=== PATIENT | male | born 1945 | race Caucasian/White ===

== ENCOUNTER → 2020-10-17 14:13 | Outpatient (CLI) | payer MEDICARE, SELFPAY ==
--- NOTE | ~2020-10-17 | CT_ITS ---
EXAMINATION: CT sinus wo con DATE: 10/17/2020 14:40 INDICATION: Headache, facial pain/pressure, acute left ear pain. TECHNIQUE: Computed tomography (CT) of the paranasal sinuses was performed without contrast. Iterativ e reconstruction technique was employed. Exam dose: 260.54 mGy-cm total exam DLP. COMPARISON: None FINDINGS: There is mild leftward deviation of nasal septum. There is intralamellar cell of both middle nasal turbinates. Moderate symmetric soft tissue thickenin g of the nasal turbinates bilaterally. The paranasal sinuses are normally developed and aerated bilaterally. The paranasal sinuses are normally developed and aerated. There is opacification of lower mastoid air cells. The majority of left mastoid air cells are normall y aerated. There is opacification of a single lower mastoid air cells on the right. The remainder of the right mastoid air cells are normally developed and aerated. Middle and inner ear apparatus appear normal. IMPRESSION: Opacification of a small number of mastoid air cells bilaterally Mild leftward deviation of nasal septum Intralamellar cell of both middle nasal turbinates Patent paranasal sinuses and ostiomeatal units Reviewed, dictated and finalized at [facility]. Reviewed, dictated and finalized at [facility]. ING EQUIPMENT INSTALLER
== END ==
PROVIDERS: PCP Emergency Medicine; Visit Provider Otolaryngology
DX: R51.9 Headache, unspecified (principal)
CPT/HCPCS: 70486

== ENCOUNTER 2021-04-21 08:02 | Outpatient (CLI) | payer MEDICARE, SELFPAY ==
--- NOTE | 2021-04-21 08:00 | ECG_ITS ---
Measurements Intervals [place] Rate: 83 P: [place]: 0 QRS: 25 QRSD: 100 T: 24 QT: 393 QTc: 462 Interpretive Statements ATRIAL FIBRILLATION INCOMPLETE RIGHT BUNDLE BRANCH BLOCK BASELINE ARTIFACT- I, II, III, AVR, AVL, AVF ABNORMAL ECG Electronically Signed On 04-21-2021 8:24:18 CDT by Tristin Mathew D.O.
[2021-04-21 08:49] LABS: Anion Gap 7 mmol/L (8-16); Blood Urea Nitrogen 15 mg/dL (9-20); Calcium 9.2 mg/dL (8.4-10.2); Carbon Dioxide 30 mmol/L (22-30); Chloride 98 mmol/L (98-107); Estimated Glomerular Filt Rate > 60; Glucose 103 mg/dL (65-110); Potassium 3.9 mmol/L (3.4-5.0); Sodium 135 mmol/L (137-145)
== END 2021-04-21 08:03 | disposition home or self-care (01) ==
PROVIDERS: Anesthesiology; PCP Emergency Medicine; Visit Provider Otolaryngology
DX: Z01.818 Encounter for other preprocedural examination (principal); I10 Essential (primary) hypertension; R94.31 Abnormal electrocardiogram [ECG] [EKG]
CPT/HCPCS: 36415; 80048; 93005

== ENCOUNTER 2021-04-22 00:55 | Day surgery (SDC) | payer MEDICARE, SELFPAY ==
[2021-04-16 14:27] VITALS: BMI 26.8
--- NOTE | 2021-04-21 12:56 | PM.IMHP ---
H&P: HPI History of Present Illness Date/Time: 04/21/21 12:56 history of nasopharyngeal cyst postnasal drip some throat pain as well as left-sided eustachian tube dysfunction presents for planned surgical procedure no change in history or symptoms. Chief Complaint: Left-sided eustachian tube dysfunction, postnasal drip, nasopharyngeal cyst, cough Review of Systems Constitutional: Constitutional: Denies fatigue, Denies fever(s) and Denies lethargy Eyes: Eyes: Denies blurry vision and Denies change in vision ENT: Reports as per HPI Cardiovascular: Cardiovascular: Denies chest pain Respiratory: Respiratory: Denies cough Endocrine: Endocrine: Denies fatigue Hematologic/Lymphatic: Hematologic/Lymphatic: Denies easy bleeding, Denies easy bruising and Denies lymphadenopathy Allergic/Immunologic: Allergic/Immunologic: Denies seasonal rhinorrhea [facility] Social History Social History Smoking status: Never smoker Alcohol intake: never Spiritual care concerns: Yes (MIRZA ANAYA) Meds Home Medications and Allergies Home Medications Medication Instructions Recorded Confirmed Type aspirin 81 mg tablet,delayed 81 mg PO DAILY 06/05/20 04/16/21 History release ergocalciferol (vitamin D2) 62.5 62.5 mcg PO DAILY 06/05/20 04/16/21 History mcg (2,500 unit) capsule metoprolol succinate 50 mg 50 mg PO QPM 06/05/20 04/16/21 History tablet,extended release 24 hr multivitamin,gk-liqa-hfzgljfz 1 tablet PO DAILY 06/05/20 04/16/21 History omega 0-ead-etk-fish oil 60 mg-90 1 cap PO DAILY 06/05/20 04/16/21 History mg-500 mg capsule vitamin B complex 1 tablet PO DAILY 06/05/20 04/16/21 History hydrochlorothiazide 12.5 mg PO QAM 04/16/21 04/16/21 History lisinopril 20 mg PO QAM 04/16/21 04/16/21 History multivitamin with minerals 1 tablet PO DAILY 04/16/21 04/16/21 History [Hair,Skin and Nails] Allergies Allergy/AdvReac Type Severity Reaction Status Date / Time No Known Allergies Allergy Verified 04/16/21 14:10 Exam Const: General: cooperative, healthy appearing, comfortable, well developed and alert HENMT: Head: normal to inspection, normocephalic and atraumatic Ears: hearing grossly normal bilaterally, external ears normal, TM normal on the right, left TM abnormal ( Retracted fluid) and EAC's normal General nose exam: Normal external nose present, Normal nares present, No nasal polyps present, Normal nasal mucous membranes and turbinates present and Normal septum present Face and sinus: normal facial exam Mouth: Yes Normal oral and palatal mucosa present, Yes lip normal, Yes tongue normal, Yes oropharynx normal and Yes moist mucous membranes Teeth and gingiva: dentition normal and gingiva normal Throat: posterior oropharynx normal, tonsils normal and uvula midline Eyes: General: appearance normal, both eyes and all related structures Periorbital: periorbital findings normal Eyelids: eyelids normal Conjunctivae: conjunctivae normal Sclera: sclerae normal Neck: Neck: normal visual inspection, full ROM and no lymphadenopathy Thyroid: thyroid normal Lymphatic: no lymphadenopathy noted Resp: Effort & Inspection: normal respiratory effort and able to speak in complete sentences Cardio: Jugular venous distension: no JVD Neuro: Cranial nerves: Yes CN's II-XII intact bilaterally Assessment and Plan Assessment and plan (1) PND (post-nasal drip): Code(s): R09.82 - Postnasal drip Status: Acute Assessment and Plan: plan is for the operating room for nasal endoscopy left-sided eustachian tube balloon dilation and marsupialization/excision of nasopharyngeal cyst total time approximately 30 minutes only to 0 degree endoscope Afrin-soaked pledgets balloon instrumentation micro debrider and suction Bovie electrocautery. Risks were discussed with the patient including bleeding infection damage to brain CSF leak damage to vision blind
--- NOTE | 2021-04-21 13:48 | P.PNAN_ITS ---
Anes - Initial Pre Proc Eval Procedure: Operation Date: 04/22/21 10:45 Proposed Procedures p Excision of Nasopharyngeal Cyst - Casey Dove MD s Left Eustachian Tube Dilation - Casey Dove MD Date/Time: 04/21/21 13:48 Surgeon: Casey Dove MD Pre Op Diagnosis: Nasalpharyngeal Cyst Patient Data Age: 75 Gender: M Height: 1.85 m Weight: 92.1 kg Allergies Allergy/AdvReac Type Severity Reaction Status Date / Time No Known Allergies Allergy Verified 04/22/21 08:58 Home Medications Medication Instructions Recorded Confirmed Type aspirin 81 mg tablet,delayed 81 mg PO DAILY 06/05/20 04/22/21 History release ergocalciferol (vitamin D2) 62.5 62.5 mcg PO DAILY 06/05/20 04/22/21 History mcg (2,500 unit) capsule metoprolol succinate 50 mg 50 mg PO QPM 06/05/20 04/22/21 History tablet,extended release 24 hr multivitamin,ww-kakr-izqapjqs 1 tablet PO DAILY 06/05/20 04/22/21 History omega 1-civ-qva-fish oil 60 mg-90 1 cap PO DAILY 06/05/20 04/22/21 History mg-500 mg capsule vitamin B complex 1 tablet PO DAILY 06/05/20 04/22/21 History hydrochlorothiazide 12.5 mg PO QAM 04/16/21 04/22/21 History lisinopril 20 mg PO QAM 04/16/21 04/22/21 History multivitamin with minerals 1 tablet PO DAILY 04/16/21 04/22/21 History [Hair,Skin and Nails] Patient hx anesthesia problems: none Family hx anesthesia problems: none [facility] Past Medical History Medical History (Updated 04/22/21 @ 09:37 by Shree Stoddard DO) Atrial fibrillation Hypertension Surgical History Surgical History (Updated 04/21/21 @ 13:49 by Shree Stoddard DO) History of tonsillectomy Social History Social History Smoking status: Never smoker Alcohol intake: never Living arrangements: with family Spiritual care concerns: Yes (MIRZA ANAYA) Anes - Eval Final PreProcedure Day of Procedure 04/21/21 13:48 Patient weight: overweight Heart: regular rate and rhythm Lungs: clear to auscultation and normal air movement Airway: Mallampati scale class II Neurological: alert and oriented Last oral intake: >/= 8 hours ASA classification: III Emergent: no Anesthetic plan: proceed Anesthesia type and monitoring: general ETT and standard monitoring Informed Consent: The patient's anesthetic plan and its attendant risks and benefits were discussed with the patient/family/POA. Questions were solicited and answers provided to the satisfaction of the patient/family/POA.
[2021-04-22] VITALS (8 sets, daily range): BP systolic 97–159; BP diastolic 54–97; PULSE 54–94; RESP 13–20; TEMP 36.4; O2SAT 98–100
--- NOTE | 2021-04-22 07:07 | WPDHPUPDATE1 ---
History and Physical Update Update Date/Time: 04/22/21 07:07 History and Physical has been reviewed, including an updated exam of the patient. There are NO changes in the patient's condition. Risks, benefits, and alternatives have been discussed and questions answered. Patient agrees to proceed with procedure.
[2021-04-22] MEDS: LACTATED RINGERS 1,000 ML 30 ML IV CONT (09:20)
[2021-04-22] MEDS: OXYMETAZOLINE HCL 0.05% NAS 15 ML BTL (*BKC) 1 SPRAY NASAL (11:04)
--- NOTE | 2021-04-22 11:39 | W.PM.PROC2 ---
Procedure Note - Detailed Date of Procedure 04/22/21 Pre-op Diagnosis Nasopharyngeal Cyst, left-sided eustachian tube dysfunction Post-op Diagnosis same Procedure Performed 1. Nasal endoscopy 2. Left-sided eustachian tube balloon dilation 3. Excision of nasopharyngeal cyst 4. Cautery of the bilateral inferior turbinates mulberry tips Surgeon Casey Dove MD Anesthesia general Indications See above Findings Difficulty inserting the balloon catheter all the way into the left-sided torus partial dilation completed, biopsy sent of nasopharyngeal lesion more soupy alive is with adequate hemostasis, obstructive bilateral inferior posterior turbinate/mulberry tips Description of Procedure Patient was correctly identified consent was verified in the preoperative holding area. The patient was then brought to the operating room time-out performed. General anesthesia was induced and endotracheal tube was secured the patient's airway and taped to the left lower lip. Bilateral inferior turbinates outfractured and Afrin-soaked pledgets placed for 5 minutes. Under 0 degree endoscopic guidance the suction Bovie was utilized to cauterize the bilateral inferior posterior turbinates given that they were obstructive and inhibited visualization of the nasopharynx and left edmund. Balloon inserted as far as possible into the left edmund which was not 100% inserted approximately 75% dilated for 2 minutes and removed. Nasopharynx lesion biopsied and marsupialized using microdebrider with 4 mm blade edges were cauterized and the area was packed with Afrin-soaked pledgets for 5 minutes. There was no bleeding noted afterwards. All the hardware and instrumentation was removed from the patient's airway and nasal passage. Care the patient was turned over to Anesthesiology. I performed all dictated portions of the procedure. Blood loss approximately 5 cc. Estimated Blood Loss 5 Drains No Packing No Pathology yes Complications No immediate complications Condition stable Disposition PACU
[2021-04-22] MEDS: ACETAMINOPHEN 325 MG TABLET 650 MG PO (12:52)
== END 2021-04-22 13:30 | disposition home or self-care (01) ==
PROVIDERS: PCP Emergency Medicine; Visit Provider Otolaryngology
PROC: 0CJS8ZZ Inspection of Larynx, Via Natural or Artificial Opening Endoscopic (ICD-10-PCS; CPT 31237; principal; 2021-04-22 10:45)
PROC: (CPT 31237; 2021-04-22 10:45)
DX: J39.2 Other diseases of pharynx (principal); H69.82 Other specified disorders of Eustachian tube, left ear; J34.89 Other specified disorders of nose and nasal sinuses; I10 Essential (primary) hypertension; Z79.82 Long term (current) use of aspirin; Z79.899 Other long term (current) drug therapy
CPT/HCPCS: 31237; 30930; 88305; A9270; C1726; J0330; J1100; J2405; J2704; J3010; J7120

== ENCOUNTER 2023-05-14 12:43 | Outpatient (CLI) | payer MEDICARE, SELFPAY ==
--- NOTE | ~2023-05-14 | MR_ITS ---
EXAMINATION: MR brain IAC wo/w con DATE: 05/14/2023 13:40 INDICATION: Headache. Chronic left ear and eye pain. TECHNIQUE: Magnetic resonance imaging (MRI) of the brain and internal auditory canals was performed w ithout and with 20 mL Multihance intravenous contrast. Sequences included sagittal and axial T1-weigh hernan FSE, axial diffusion-weighted FS EPI, axial T2*-weighted GRE, axial T2-weighted FLAIR Propeller, axial T2-weighted Propeller, small pqzdi-gn-tcmw coronal FIESTA, small kelys-gn-xzkg coronal T1-weigh hernan FSE, and small wihpv-ge-whqv axial T1-weighted SPGR. Postcontrast sequences included axial T1-constantino ghted FSE, small evrwx-bz-hfbi coronal T1-weighted FSE, and small iflzr-or-lmie axial T1-weighted SPG R. Apparent diffusion coefficient (ADC) maps were created. COMPARISON: Head CT dated 10/17/2020 and 04/19/2015 FINDINGS: There are no areas of restricted diffusion to suggest acute infarction. No intracranial hemorrhage or abnormal intracranial mass lesion. There are scattered areas of nonspecific increased T2-weighted si gnal intensity in the cerebral white matter, predominantly involving the deep and periventricular whi te matter. There are no intraparenchymal signal abnormalities seen on the other pulse sequences. The ventricles are symmetric and normal in size. There are no abnormal extra-axial fluid collections. Nor mal seventh/eighth cranial nerve complexes. No cerebellopontine angles masses. No middle ear fluid. No interval change since 04/19/2015 in a small amount of fluid in the inferior aspect of the bilateral mastoid air cells, left greater than right. Flow voids are seen in the cerebral arteries on the T2-w eighted sequences consistent with their expected patency. Left vertebral artery is dominant. The righ t vertebral artery is diminutive and appears to terminate in the right posterior inferior cerebellar artery. Changes of bilateral intraocular lens replacement. There are no areas of abnormal enhancement on the post contrast images. IMPRESSION: 1. No acute intracranial process or abnormally enhancing brain lesions. 2. Mild scattered white matter T2 hyperintensity which is within normal limits for age and likely seq uela of chronic small vessel ischemic disease. Reviewed, dictated and finalized at [facility]. IMPRESSION: 1. No acute intracranial process or abnormally enhancing brain lesions. 2. Mild scattered white matter T2 hyperintensity which is within normal limits for age and likely sequela of chronic small vessel ischemic disease.
== END 2023-05-14 12:44 ==
LOC: MICIMG 12:46
PROVIDERS: PCP Student in an Organized Health Care Education/Training Program; Visit Provider Student in an Organized Health Care Education/Training Program
DX: R51.9 Headache, unspecified (principal); R90.82 White matter disease, unspecified
CPT/HCPCS: 70553; A9577

== ENCOUNTER 2023-12-08 13:38 | Outpatient (CLI) | payer MEDICARE, SELFPAY ==
--- NOTE | ~2023-12-08 | CT_ITS ---
EXAMINATION: CTA brain carotid DATE: 12/08/2023 14:24 INDICATION: Left ear pain. Left frontal headache. TECHNIQUE: Computed tomographic angiography (CTA) of the head was performed without and with 100 mL O mnipaque-350 intravenous contrast. CTA of the neck was performed with intravenous contrast. Automated exposure control and iterative reconstruction technique were employed. The dose-length product was 1 640.32 mGy-cm. Maximum intensity projection and volume rendered 3D-reconstructions were created by glynn pillai technologist on a separate workstation. COMPARISON: None. FINDINGS: HEAD CTA: There are scattered areas of low attenuation in the cerebral white matter, which is within normal limits for the patient's age. There is no intracranial hemorrhage, acute infarction, or abnorm al intracranial mass lesion. The ventricles are normal in size. There are likely changes of ocular le ns replacement surgeries. There is a small left mastoid effusion. Left vertebral artery is dominant. There is no significant stenosis of basilar artery or the posterior cerebral arteries. There is no si gnificant stenosis of intracranial internal carotid arteries or anterior or middle cerebral arteries. Anterior communicating artery is normal. The posterior communicating arteries are normal. There is n o aneurysm. NECK CTA: There are no pathologically enlarged lymph nodes. There is no significant stenosis of the r ight vertebral artery. There is moderate stenosis of origin of left vertebral artery. There is minima l plaque in the proximal internal carotid arteries. There is 0% stenosis of the proximal right staff internist office based only al carotid artery relative to normal distal artery lumen diameter (NASCET criteria). There is 0% sten osis of the proximal left internal carotid artery relative to normal distal artery lumen diameter. Th ere is severe cervical spondylosis. There is mild chronic anterior wedging of C7 and T1 vertebral bod ies. IMPRESSION: 1. Normal aging brain. 2. No aneurysm or significant intracranial arterial stenosis. 3. 0% stenosis of the proximal internal carotid arteries relative to normal distal artery lumen diame ter (NASCET criteria). Reviewed, dictated and finalized at [facility]. IMPRESSION: 1. Normal aging brain. 2. No aneurysm or significant intracranial arterial stenosis. 3. 0% stenosis of the proximal internal carotid arteries relative to normal dis felecia artery lumen diameter (NASCET criteria).
[2023-12-08 13:53] LABS: Estimated Glomerular Filt Rate > 60
== END 2023-12-08 13:39 ==
LOC: MICIMG 13:39
PROVIDERS: PCP Student in an Organized Health Care Education/Training Program; Visit Provider Student in an Organized Health Care Education/Training Program
DX: R51.9 Headache, unspecified (principal); H92.02 Otalgia, left ear
CPT/HCPCS: 70496; 70498; Q9967

== ENCOUNTER 2025-08-07 10:36 | Outpatient (CLI) | payer MEDICARE, SELFPAY ==
--- NOTE | ~2025-08-07 | CT_ITS ---
EXAM/PROCEDURE: CT chest abdomen pelvis w con HISTORY: Prostate enlargement, lung nodules COMPARISON: None available. TECHNIQUE: Contrast-enhanced chest abdomen and pelvic CT FINDINGS: Chest CT: 4 mm subpleural nodule left lower lobe image 77 series 4. 4 mm subpleural nodule right upper lobe image 38 series 4. No other nodules or masses. Mild atelectatic appearing changes. The lungs are otherwise clear. Heart and great vessels appear normal. No bulky lymphadenopathy. Diffuse degenerative changes throughout the bones which otherwise appear intact. In the abdomen and pelvis, no bulky mesenteric or retroperitoneal lymphadenopathy or masses. The prostate is moderately enlarged. Moderately severe diverticular disease with no gross acute diverticulitis. Gallbladder pancreas spleen stomach and adrenal glands appear normal. Small bilateral simple appearing renal cyst. No AAA. No osteoblastic or osteolytic bony lesions seen. Degenerative changes throughout the lumbar spine. IMPRESSION: 1. Small bilateral lung nodules probably benign. Correlation with follow-up chest CT in 6 months recommended. 2. No gross evidence of metastatic or malignant disease seen in the abdomen and pelvis. Reviewed, dictated and finalized at [facility]. CHING MACHINE OPERATOR IMPRESSION: 1. Small bilateral lung nodules probably benign. Correlation with follow-up [facility] st CT in 6 months recommended. 2. No gross evidence of metastatic or malignant disease seen in the abdomen and pelvis.
[2025-08-07 11:21] LABS: Estimated Glomerular Filt Rate > 60
== END 2025-08-07 10:37 | disposition home or self-care (01) ==
LOC: MICIMG 10:36
PROVIDERS: PCP Registered Nurse; Visit Provider Registered Nurse
DX: N40.0 Benign prostatic hyperplasia without lower urinary tract symptoms (principal); R91.8 Other nonspecific abnormal finding of lung field
CPT/HCPCS: 71260; 74177; Q9967